=== PATIENT | female | born 1995 ===

== ENCOUNTER 2019-02-22 23:42 | Emergency (ER) | payer SELFPAY ==
[~2019-02-22] VITALS: Ht 160 cm; Wt 108.3 kg
[~2019-02-22 23:42] MED LIST: IBUP-1542 PO
[2019-02-22 23:45] VITALS: Ht 160 cm; Wt 108.3 kg
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
[2019-02-23] MEDS ORDERED: IBUPROFEN 800 MG TAB PO ONE
[2019-02-23 01:10] VITALS: BP 127/77; PULSE 91; RESP 16
== END 2019-02-23 01:10 | disposition home or self-care (01) ==
LOC: E/R 23:42
DX: S00.12XA Contusion of left eyelid and periocular area, initial encounter (principal); J45.909 Unspecified asthma, uncomplicated; Y04.8XXA Assault by other bodily force, initial encounter
CPT/HCPCS: 70450; 70486